=== PATIENT | male | born 1955 | race Caucasian/White ===

== ENCOUNTER 2016-10-18 11:58 | Emergency (ER) | payer BC ==
[2016-10-18 12:05] VITALS: BP 154/100; PULSE 76; RESP 18; TEMP 97.7; O2SAT 95
[2016-10-18 13:00] LABS: COLOR PALE YELLOW; LEUKOCYTE ESTERASE,URINE NEGATIVE (NEGATIVE); NITRITE,URINE NEGATIVE (NEGATIVE)
[2016-10-18 13:07] LABS: % IMMATURE GRANULYOCYTES 0.3 % (0.0-1.1); ABSOLUTE IMMATURE GRANULOCYTES 0.03 10^3/uL (0.00-0.10); ADD DIFF? NO; ADD MORPH? NO; ADD SCAN? NO; ATYPICAL LYMPHOCYTE FLAG 10 (0-99); FRAGMENT RBC FLAG 0 (0-99); HEMATOCRIT 48.2 % (40.0-51.0); HEMOGLOBIN 16.9 g/dL (13.7-17.5); LEFT SHIFT FLG 0 (0-99); LIPEMIA HEMOLYSIS FLAG 90 (0-99); MEAN CELL HEMOGLOBIN 30.5 pg (27.9-34.1); MEAN CELL HEMOGLOBIN CONCENTR. 35.1 g/dL (32.4-36.7); MEAN CELL VOLUME 86.8 fL (81.5-99.8); MEAN PLATELET VOLUME 9.8 fL (8.7-11.7); PLATELET CLUMPS FLAG 0 (0-99); PLATELET COUNT 256 10^3/uL (150-400); RED BLOOD CELL COUNT 5.55 10^6/uL (4.40-6.38); RED CELL DISTRIBUTION WIDTH 12.5 % (11.5-15.2)
[2016-10-18 13:29] LABS: ANION GAP 13 mEq/L (8-16); CALCIUM 10.2 mg/dL (8.5-10.4); CARBON DIOXIDE 24 mEq/l (22-31); CHLORIDE 100 mEq/L (97-110); CREATININE 1.2 mg/dL (0.7-1.3); GLOMERULAR FILTRATION RATE > 60; GLUCOSE 125 mg/dL (70-100); POTASSIUM 4.7 mEq/L (3.5-5.2); SODIUM 137 mEq/L (134-144)
--- NOTE | 2016-10-18 13:45 | EDPHY ---
H & P Time Seen by Provider: 10/18/16 12:17 HPI/ROS: HPI Right flank pain. 60-year-old male by private vehicle. This patient reports that he was visiting his per [place] on . He reports that Sunday morning he woke at 1: 00 a.m. with what he describes as severe sharp right-sided flank pain with radiation into his right groin area. No history of trauma. He reports he has had kidney stones in the past and this pain felt like a kidney stone pain. He states that he was given some Tylenol No. 3 by family who he was visiting in [place]. He did not have any relief initially but then his pain went away. He has pain then came back on Sunday night and he was taken to the emergency department by family. He apparently had a negative urinalysis there and a negative CT scan of his abdomen and pelvis without contrast: He but the CT discussed with him. He reports that he return to [place] on Sunday. He reports he has had intermittent episodes of pain since that time is taken 3 Vicodin over the last 2-3 days with relief. The Vicodin were given to him by his global transportation manager after he had a lesion removed from his left nose. He reports that he woke up again this morning with severe left-sided flank pain. He reports that he is now comfortable in the pain has resolved but he is concerned he still has a kidney stone. ROS: Constitutional: No fever, no chills. No weakness. Eyes: No discharge. No changes in vision. ENT: No sore throat. No nasal congestion or rhinorrhea. Respiratory: No cough. No shortness of breath. Cardiac: No chest pain, no palpitations. Gastrointestinal: As above, no vomiting, no diarrhea. Genitourinary: No hematuria. No dysuria or increased frequency with urination. Musculoskeletal: As above. No neck pain. No myalgias or arthralgias. Skin: No rashes. Neurological: No headache. No focal weakness or altered sensation. Past medical history: Kidney stones, skin cancer. He recently had surgery on the left side of his face for skin cancer. Social history: Here by himself. Nonsmoker. Physically active. Physical Exam: General Appearance: Alert, no distress. This patient is responding to questions appropriately and in full sentences. This patient appears well- hydrated and well-nourished. Eyes: Pupils equal and round no pallor or injection. No lid edema, erythema or injection. Respiratory: There are no retractions, lungs are clear to auscultation with good air movement bilaterally. Cardiovascular: Regular rate and rhythm. No murmur. Gastrointestinal: Abdomen is soft and nontender, no masses, bowel sounds normal. No focal tenderness at McBurney's point. No Still sign. Genitourinary: Normal descended testicles. Normal lie. No masses or swelling. Nontender. No clinical evidence of torsion. Neurological: Motor sensory function is grossly intact. Cranial nerves are normal. Gait is normal. Skin: Warm and dry, no rashes. Musculoskeletal: No left-sided CVA tenderness on palpation. No right-sided CVA tenderness on palpation. Extremities are symmetrical. All joints range without pain or impingement. Psychiatric: No agitation. No depression. Database: EKG: Imaging: Procedures: Emergency department course: IV was placed. Blood work was drawn to assess his renal function and urinalysis was repeated. He does not have any pain at this time. I reviewed his medical records from the [facility] in [place]. CT report indicates that a normal appendix was seen. There is an ill-defined mass involving the right kidney with some hydronephrosis and hydroureter. 1:45 p.m., I discussed this with our staff radiologist. His CT images are now in our system. He agrees with the reported. He feels that a contrast study would help further clarify this mass involving his right kidney. He did not feel this needed to be done emergently however urgent urology follow-up and imaging as recommended by urology is necessary. 1:45 p.m., patient re-evaluated. Resting comfortably at this time. Results of his urinalysis discussed with him. I explained that some isolated blood in the urine was consistent with a possible kidney stone. I did discuss reimaging him. However, given his history of skin cancer he is reluctant to do this. This is understandable. I discussed my conversation with our radiologist and our interpretation of the CT scan. He does not want to have a CT scan at this time. Plan will be to have him follow up with Urology, Dr. Wellington or 1 of his partners for re-evaluation this week. I explained that I would prescribe him Vicodin if he has any further episodes of pain. He was in agreement with this plan. Return to emergency department precautions were discussed with him. All of his questions were answered. He was discharged in good condition. Differential Diagnosis: The differential diagnosis on this patient includes but is not limited to kidney stone, musculoskeletal back pain. Nephritis, pyelonephritis unlikely. This represents a partial list of diagnoses considered. These considerations are based on history, physical exam, past history, reassessment and diagnostic testing. Smoking Status: Never smoked Constitutional: Initial Vital Signs Temperature (C) 36.5 C 10/18/16 12:03 Heart Rate 76 10/18/16 12:03 Respiratory Rate 18 10/18/16 12:03 Blood Pressure 154/100 H 10/18/16 12:03 O2 Sat (%) 95 10/18/16 12:03 O2 Delivery Mode Room Air Allergies/Adverse Reactions: No Known Allergies Allergy (Unverified 02/29/12 09:29) Home Medications: Medication Instructions Recorded Hydrocodone/APAP 5/325 [[place] 1 - 2 tab PO Q4-6PRN PRN #14 tab 10/18/16 5/325 (*)] Vicodin 5-300 mg Tablet 10/18/16 Medical Decision Making - Data Points Laboratory Results: Laboratory Results 10/18/16 13:00 10/18/16 13:00 Departure - Departure Disposition: Home, Routine, Self-Care Clinical Impression: Right kidney mass Condition: Good Instructions: Kidney Stones (ED) Additional Instructions: Read and follow provided instructions. Follow-up with Urology in 1-2 days for re-evaluation. Call their office this afternoon for appointment. They will be able to review your images on their computer at their office. The urologist with then guide you to appropriate imaging and further diagnostic workup. Explain this is for an emergency department follow-up. You should be seen this week for re-evaluation. [place]/Percocet dosin-2 every 4-6 [address] for [address] Do not drive on this medication. Return to the emergency department for worsening or uncontrolled pain, fever, vomiting or other serious concerns. Referrals: Melissa Wellington MD [Medical Doctor] - As per Instructions Bud Chairze MD [Medical Doctor] - As per Instructions Prescriptions: Hydrocodone/APAP 5/325 [[place] 5/325 (*)] 1 - 2 tab PO Q4-6PRN PRN #14 tab PRN Reason: Pain, Moderate
== END 2016-10-18 14:13 | disposition home or self-care (01) ==
DX: N28.89 Other specified disorders of kidney and ureter (principal); Z85.828 Personal history of other malignant neoplasm of skin